=== PATIENT | male | born 1950 | race Caucasian/White ===

== ENCOUNTER 2017-04-16 08:22 | Inpatient (IN) ==
[2017-04-16] MEDS ORDERED: LEVOFLOXACIN INJ 750 MG in PREMIX 1 EACH IV SCH (08:30)
[2017-04-16] MEDS ORDERED: ETOMIDATE 20 MG/10 ML VIAL IV ONE (08:44)
[2017-04-16] MEDS ORDERED: ROCURONIUM 100 MG/10 ML VIAL IV ONE (08:45)
[2017-04-16 08:49] LABS: Basophils % 0.2 % (0.0-0.8); Eosinophils % 0.3 % (0.00-10.9); Hematocrit 25.6 VOL% (42.0-52.0); Hemoglobin 7.6 GM/DL (14.0-18.0); Immature Granulocytes % 3.5 %; Immature Granulocytes Absolute 0.22 #; Lymphocytes # 0.9 10*3/uL (1.4-4.0); Lymphocytes % 14.7 % (21.2-54.2); Mean Corpuscular HGB Conc 29.7 GM/DL (32-36); Mean Corpuscular Hemoglobin 31 PG (27-34); Mean Corpuscular Volume 103.2 FL (87-102); Mean Platelet Volume 10.8 FL (9.6-12.0); Monocytes # 0.9 10*3/uL (0.11-0.8); NRBC # 0.03 10*3/uL; Neutrophils # 4.2 10*3/uL (1.4-7.4); Neutrophils % 66.3 % (38.7-73.9); Platelet Count 131 T/CUMM (130-400); Red Blood Count 2.48 MC/CUMM (3.8-5.5); Red Cell Distribution Width 15.9 % (9.3-17.3); White Blood Count 6.3 T/CUMM (4-12)
[2017-04-16 08:58] LABS: PT Patient Result 10.6 SECS; Partial Thromboplastin Time 27.3 SECS (0-40)
[2017-04-16 09:11] LABS: Alanine Aminotransferase < 6 U/L (16-61); Albumin 2.4 G/DL (3.4-5.0); Alkaline Phosphatase 52 U/L (45-117); Aspartate Amino Transferase 39 U/L (0-37); Blood Urea Nitrogen 60 MG/DL (7-18); Calcium 8.8 MG/DL (8.5-10.1); Glucose 79 MG/DL (74-106); Magnesium 2.1 MG/DL (1.8-2.4); Osmolality,Calculated 318.6 MOS/KG (273-304); Potassium 4.4 MMOL/L (3.5-5.1); Sodium 153 MMOL/L (136-145); Total Protein 6.5 G/DL (6.4-8.3)
[2017-04-16] MEDS ORDERED: ENOXAPARIN 100 MG/ML SYRINGE SUBCUT STA (09:14)
[2017-04-16] MEDS ORDERED: ASPIRIN 300 MG SUPP RECTAL STA (09:14)
[2017-04-16] MEDS ORDERED: methylPREDNISolone SOD SUC 125 MG/2 ML VIAL IV STA (09:16)
[2017-04-16 09:29] LABS: ABG Base Excess -4.6 MMOL/L (-2.5-2.5); ABG Oxygen Saturation 99.1 % (95-100); ABG PCO2 41.2 MM HG (35-48); ABG PH 7.325 (7.35-7.45); ABG TCO2 22.3 MMOL/L (23-27)
[2017-04-16] MEDS ORDERED: ENOXAPARIN 100 MG/ML SYRINGE SUBCUT ONE (09:49)
[2017-04-16] MEDS ORDERED: LEVOFLOXACIN INJ 150 ML IV ONE (09:49)
[2017-04-16] MEDS ORDERED: ASPIRIN 300 MG SUPP RECTAL ONE (09:50)
[2017-04-16] MEDS ORDERED: methylPREDNISolone SOD SUC 125 MG/2 ML VIAL ONE (09:50)
[2017-04-16] MEDS ORDERED: ALBUTEROL/IPRATROPIUM 3 ML NEB RESP TX STA (10:00)
[2017-04-16] MEDS: PROPOFOL 1,000 MG/100 ML BOTTLE IV SCH ×2 (10:00→18:20)
[2017-04-16 10:38] LABS: Apearance,Urine CLOUDY (Clear); Bilirubin,Urine Negative (Negative); Blood, Urine Small mg/dL (Negative); Glucose,Urine (UA) Negative (Negative); Ketones,Urine 5 mg/dL (Negative); Nitrite,Urine Negative (Negative); Protein,Urine 100 MG/DL; Urine Color Yellow (Yellow); Urine Specific Gravity 1.009 (1.001-1.035); Urine Urobilinogen < 2.0 EU/DL (0.2-1.0)
[2017-04-16] MEDS ORDERED: FUROSEMIDE 40 MG/4 ML VIAL IV STA (10:44)
[2017-04-16] MEDS ORDERED: FUROSEMIDE 40 MG/4 ML VIAL ONE (10:53)
[2017-04-16] MEDS ORDERED: PANTOPRAZOLE 40 MG VIAL IV ONE (10:57)
[2017-04-16] MEDS: PANTOPRAZOLE 40 MG VIAL IV SCH (11:00)
[2017-04-16] MEDS ORDERED: DEXTROSE 5% NACL 0.45% 1,000 ML IV SCH (11:30)
[2017-04-16] MEDS ORDERED: SODIUM CHLORIDE 0.9% 1,000 ML IV PRN (11:47)
[2017-04-16] MEDS ORDERED: diphenhydrAMINE 50 MG/1 ML VIAL IV PRN (11:47)
[2017-04-16] MEDS ORDERED: MORPHINE 2 MG/1 ML SYRINGE IV PRN (12:11)
[2017-04-16] MEDS ORDERED: ENOXAPARIN 30 MG/0.3 ML SYRINGE SUBCUT SCH (13:00)
[2017-04-16] MEDS ORDERED: MEROPENEM 500 MG in SYRINGE 1 EACH IV SCH (15:00)
[2017-04-16] MEDS: DEXTROSE 5% 1,000 ML IV SCH (15:35)
[2017-04-16] MEDS ORDERED: ALBUTEROL/IPRATROPIUM 3 ML NEB RESP TX PRN (16:05)
[2017-04-16 16:33] LABS: % Iron Saturation 7.4 % (18-50); Thyroid Stimulating Hormone 17.6 uIU/ml (0.358-3.74)
[2017-04-16 16:43] LABS: Folate 7.5 NG/ML (5.4-24.0)
[2017-04-16] MEDS: ALBUTEROL/IPRATROPIUM 3 ML NEB RESP TX SCH (19:46)
[2017-04-16] MEDS: methylPREDNISolone SOD SUC 125 MG/2 ML VIAL IV SCH (21:17)
[2017-04-17] MEDS: ALBUTEROL/IPRATROPIUM 3 ML NEB RESP TX SCH ×4 (01:22→19:54)
[2017-04-17] MEDS ORDERED: PHENOL 1.4% THROAT SPRAY 177 ML BOTTLE PO PRN (02:13)
[2017-04-17] MEDS: DEXTROSE 5% 1,000 ML IV SCH ×2 (02:18→12:22)
[2017-04-17 03:55] LABS: ABG Base Excess -4.6 MMOL/L (-2.5-2.5); ABG HCO3 20.6 MMOL/L (20-26); ABG Oxygen Saturation 99.7 % (95-100); ABG PCO2 36.9 MM HG (35-48); ABG PH 7.351 (7.35-7.45); ABG TCO2 18.4 MMOL/L (23-27)
[2017-04-17] MEDS: PROPOFOL 1,000 MG/100 ML BOTTLE IV SCH ×2 (05:40→11:41)
[2017-04-17 05:43] LABS: Hematocrit 23.3 VOL% (42.0-52.0); Hemoglobin 7.5 GM/DL (14.0-18.0); Immature Granulocytes % 4.1 %; Immature Granulocytes Absolute 0.15 #; Lymphocytes # 0.4 10*3/uL (1.4-4.0); Lymphocytes % 11.1 % (21.2-54.2); Mean Corpuscular HGB Conc 32.2 GM/DL (32-36); Mean Corpuscular Hemoglobin 31 PG (27-34); Mean Corpuscular Volume 95.1 FL (87-102); Mean Platelet Volume 10.8 FL (9.6-12.0); Monocytes # 0.4 10*3/uL (0.11-0.8); Monocytes % 9.8 % (1.7-12.7); NRBC # 0.02 10*3/uL; Neutrophils # 2.8 10*3/uL (1.4-7.4); Platelet Count 102 T/CUMM (130-400); Red Blood Count 2.45 MC/CUMM (3.8-5.5); Red Cell Distribution Width 16.1 % (9.3-17.3); White Blood Count 3.7 T/CUMM (4-12)
[2017-04-17 06:05] LABS: Giant Platelets Few; Hypochromasia 1+; Lymphocytes 8 % (20-55); Ovalocytes Slight; Platelet Estimate Decreased; Segmented Neutrophils 83 % (50-85); Total Cells Counted 100
[2017-04-17 06:12] LABS: Calcium 8.1 MG/DL (8.5-10.1); Osmolality,Calculated 313.3 MOS/KG (273-304); Potassium 4.3 MMOL/L (3.5-5.1)
[2017-04-17 06:13] LABS: CKMB % 11.3 %
[2017-04-17 06:21] LABS: Troponin I Only 3.23 NG/ML (0.00-0.045)
[2017-04-17 07:19] LABS: Immuno Free Light Chain Kappa 12.64 MG/DL (0.33-1.94); Immuno Free Light Chain Lambda 5.98 MG/DL (0.57-2.63); Immuno Free Light Chain Ratio 2.11 MG/DL (0.26-1.65)
[2017-04-17] MEDS ORDERED: LEVOTHYROXINE 100 MCG VIAL IV SCH (08:55)
[2017-04-17] MEDS: PANTOPRAZOLE 40 MG VIAL IV SCH (09:31)
[2017-04-17 09:44] LABS: Albumin (SPE) 2.6 G/DL (3.2-5.3); Albumin (SPE) Rel % 47.7 %; Alpha 1 (SPE) 0.3 G/DL (0.1-0.4); Alpha 1 (SPE) Rel % 5.3 %; Alpha 2 (SPE) 0.8 G/DL (0.4-1.0); Alpha 2 (SPE) Rel % 14.8 %; Beta (SPE) 0.8 G/DL (0.5-1.1); Beta (SPE) Rel % 14.5 %; Total Protein (Chem) 5.5 G/DL (6.4-8.3)
[2017-04-17 09:45] LABS: Gamma (SPE) Rel % 17.7 %
[2017-04-17] MEDS: ENOXAPARIN 30 MG/0.3 ML SYRINGE SUBCUT SCH (09:45)
[2017-04-17] MEDS: methylPREDNISolone SOD SUC 125 MG/2 ML VIAL IV SCH (09:53)
[2017-04-17 09:57] LABS: ABG Base Excess -5.4 MMOL/L (-2.5-2.5); ABG HCO3 20.9 MMOL/L (20-26); ABG Oxygen Saturation 98.4 % (95-100); ABG PCO2 44.1 MM HG (35-48); ABG PH 7.293 (7.35-7.45); ABG PO2 157.4 MM HG (80-95); ABG TCO2 22.2 MMOL/L (23-27)
[2017-04-17] MEDS ORDERED: ACETAMINOPHEN 325 MG TABLET PO PRN (10:36)
[2017-04-17] MEDS ORDERED: BISACODYL 5 MG TABLET PO PRN (10:36)
[2017-04-17 12:00] LABS: ABG Base Excess -5.2 MMOL/L (-2.5-2.5); ABG HCO3 21.4 MMOL/L (20-26); ABG Oxygen Saturation 94.5 % (95-100); ABG PCO2 47.6 MM HG (35-48); ABG PH 7.271 (7.35-7.45); ABG TCO2 22.9 MMOL/L (23-27); Allen Test Positive
[2017-04-17] MEDS ORDERED: hydrALAZINE 20 MG/1 ML VIAL IV PRN (12:32)
[2017-04-17] MEDS: ZINC OXIDE PASTE 113 GM TUBE TOP SCH ×2 (12:44→21:41)
[2017-04-17] MEDS: amLODIPine 10 MG TABLET PO SCH (13:11)
[2017-04-17] MEDS: CARVEDILOL 3.125 MG TABLET PO SCH ×2 (13:11→21:41)
[2017-04-17] MEDS ORDERED: AZITHROMYCIN 250 MG TABLET PO ONE (14:00)
[2017-04-17] MEDS: cefTRIAXone 1,000 MG in SYRINGE 1 EACH IV SCH (14:01)
[2017-04-17] MEDS: CARBIDOPA/LEVODOPA 25-100 MG TABLET PO SCH ×2 (15:43→21:39)
[2017-04-17] MEDS: DIVALPROEX 500 MG TABLET PO SCH ×2 (15:43→21:40)
[2017-04-17] MEDS: SODIUM CHLORIDE 0.45% 1,000 ML IV SCH (17:58)
[2017-04-17] MEDS ORDERED: CARVEDILOL 3.125 MG TABLET PO SCH (21:00)
[2017-04-17] MEDS: GABAPENTIN 100 MG CAPSULE PO SCH (21:40)
[2017-04-17] MEDS: FERROUS SULFATE 325 MG TABLET PO SCH (21:40)
[2017-04-17] MEDS: THEOPHYLLINE ER 300 MG TABLET PO SCH (21:40)
[2017-04-17] MEDS: BUDESONIDE/FORMOTEROL 160-4.5 INHALER 6 GM INH SCH (21:55)
[2017-04-18] MEDS: ALBUTEROL/IPRATROPIUM 3 ML NEB RESP TX SCH ×4 (01:11→19:29)
[2017-04-18 05:13] LABS: ABG Base Excess -4.6 MMOL/L (-2.5-2.5); ABG HCO3 20.5 MMOL/L (20-26); ABG Oxygen Saturation 94.4 % (95-100); ABG PCO2 44.6 MM HG (35-48); ABG PH 7.298 (7.35-7.45); ABG PO2 71.5 MM HG (80-95); ABG TCO2 19.9 MMOL/L (23-27); Allen Test Positive
[2017-04-18 05:18] LABS: Basophils % 0.2 % (0.0-0.8); Eosinophils % 0.4 % (0.00-10.9); Hematocrit 27.1 VOL% (42.0-52.0); Hemoglobin 8.5 GM/DL (14.0-18.0); Immature Granulocytes Absolute 0.23 #; Lymphocytes # 1.2 10*3/uL (1.4-4.0); Lymphocytes % 26.4 % (21.2-54.2); Mean Corpuscular HGB Conc 31.4 GM/DL (32-36); Mean Corpuscular Hemoglobin 30 PG (27-34); Mean Corpuscular Volume 96.8 FL (87-102); Mean Platelet Volume 11.2 FL (9.6-12.0); Monocytes # 0.6 10*3/uL (0.11-0.8); Monocytes % 12.6 % (1.7-12.7); NRBC # 0.02 10*3/uL; Neutrophils # 2.5 10*3/uL (1.4-7.4); Neutrophils % 55.4 % (38.7-73.9); Platelet Count 120 T/CUMM (130-400); Red Cell Distribution Width 15.9 % (9.3-17.3); White Blood Count 4.6 T/CUMM (4-12)
[2017-04-18 05:53] LABS: Calcium 7.7 MG/DL (8.5-10.1); Magnesium 2.1 MG/DL (1.8-2.4); Osmolality,Calculated 305.7 MOS/KG (273-304); Potassium 4.6 MMOL/L (3.5-5.1)
[2017-04-18] MEDS: SODIUM CHLORIDE 0.45% 1,000 ML IV SCH ×2 (07:00→14:32)
[2017-04-18 07:03] LABS: CKMB % 14.1 %
[2017-04-18 07:04] LABS: Troponin I Only 1.83 NG/ML (0.00-0.045)
[2017-04-18] MEDS: LEVOTHYROXINE 100 MCG TABLET PO SCH (07:13)
[2017-04-18] MEDS ORDERED: LEVOTHYROXINE 50 MCG TABLET PO SCH (09:00)
[2017-04-18] MEDS ORDERED: predniSONE 10 MG TABLET PO SCH (09:00)
[2017-04-18] MEDS ORDERED: amLODIPine 10 MG TABLET PO SCH (09:00)
[2017-04-18] MEDS: POTASSIUM CHLORIDE 20 MEQ PACK PO SCH (09:39)
[2017-04-18] MEDS: FENOFIBRATE 145 MG TABLET PO SCH (10:12)
[2017-04-18] MEDS: AZITHROMYCIN 250 MG TABLET PO SCH (10:12)
[2017-04-18] MEDS: CARBIDOPA/LEVODOPA 25-100 MG TABLET PO SCH ×3 (10:13→20:16)
[2017-04-18] MEDS: FAMOTIDINE 20 MG TABLET PO SCH (10:13)
[2017-04-18] MEDS: FERROUS SULFATE 325 MG TABLET PO SCH ×2 (10:13→20:16)
[2017-04-18] MEDS: MONTELUKAST 10 MG TABLET PO SCH (10:13)
[2017-04-18] MEDS: DIVALPROEX 500 MG TABLET PO SCH ×3 (10:13→20:15)
[2017-04-18] MEDS: amLODIPine 10 MG TABLET PO SCH (10:14)
[2017-04-18] MEDS: ROSUVASTATIN 20 MG TABLET PO SCH (10:14)
[2017-04-18] MEDS: THEOPHYLLINE ER 300 MG TABLET PO SCH ×2 (10:15→20:15)
[2017-04-18] MEDS: MULTIVITAMIN (CENTRUM) TABLET PO SCH (10:15)
[2017-04-18] MEDS: CARVEDILOL 3.125 MG TABLET PO SCH ×2 (10:15→20:16)
[2017-04-18] MEDS: GABAPENTIN 100 MG CAPSULE PO SCH ×2 (10:15→20:16)
[2017-04-18] MEDS: ASPIRIN CHEW 81 MG TABLET PO SCH (10:15)
[2017-04-18] MEDS: MUPIROCIN 2% OINT 22 GM TUBE TOP SCH ×2 (10:16→20:17)
[2017-04-18] MEDS: PANTOPRAZOLE 40 MG VIAL IV SCH (10:16)
[2017-04-18] MEDS: ENOXAPARIN 30 MG/0.3 ML SYRINGE SUBCUT SCH (10:16)
[2017-04-18] MEDS: BUDESONIDE/FORMOTEROL 160-4.5 INHALER 6 GM INH SCH ×2 (10:16→20:18)
[2017-04-18] MEDS: ZINC OXIDE PASTE 113 GM TUBE TOP SCH ×2 (10:17→20:17)
[2017-04-18] MEDS: cefTRIAXone 1,000 MG in SYRINGE 1 EACH IV SCH (14:21)
[2017-04-18] MEDS: FLUoxetine 10 MG CAPSULE PO SCH (14:22)
[2017-04-19] MEDS: SODIUM CHLORIDE 0.45% 1,000 ML IV SCH ×2 (00:13→11:06)
[2017-04-19] MEDS: ALBUTEROL/IPRATROPIUM 3 ML NEB RESP TX SCH ×4 (01:10→19:45)
[2017-04-19 04:22] LABS: Basophils % 0.7 % (0.0-0.8); Eosinophils # 0.1 10*3/uL (0.0-0.87); Eosinophils % 1.4 % (0.00-10.9); Hematocrit 26.8 VOL% (42.0-52.0); Hemoglobin 8.7 GM/DL (14.0-18.0); Immature Granulocytes % 9.4 %; Immature Granulocytes Absolute 0.41 #; Lymphocytes # 1.3 10*3/uL (1.4-4.0); Lymphocytes % 29.2 % (21.2-54.2); Mean Corpuscular HGB Conc 32.5 GM/DL (32-36); Mean Corpuscular Hemoglobin 31 PG (27-34); Mean Corpuscular Volume 95.4 FL (87-102); Mean Platelet Volume 10.3 FL (9.6-12.0); Monocytes # 0.6 10*3/uL (0.11-0.8); Monocytes % 12.9 % (1.7-12.7); Neutrophils % 46.4 % (38.7-73.9); Platelet Count 113 T/CUMM (130-400); Red Blood Count 2.81 MC/CUMM (3.8-5.5); Red Cell Distribution Width 15.7 % (9.3-17.3); White Blood Count 4.4 T/CUMM (4-12)
[2017-04-19 04:55] LABS: Calcium 7.6 MG/DL (8.5-10.1); Potassium 4.5 MMOL/L (3.5-5.1)
[2017-04-19 06:04] LABS: Band Neutrophils 5 % (0-10); Eosinophils 3 % (0-10); Lymphocytes 30 % (20-55); Metamyelocytes 3 %; Myelocytes 6 %; Segmented Neutrophils 50 % (50-85); Total Cells Counted 100
[2017-04-19 06:05] LABS: Anisocytosis 1+; Hypochromasia 1+
[2017-04-19 06:06] LABS: Platelet Estimate Adequate
[2017-04-19] MEDS: LEVOTHYROXINE 100 MCG TABLET PO SCH (06:28)
[2017-04-19] MEDS: ENOXAPARIN 30 MG/0.3 ML SYRINGE SUBCUT SCH (09:36)
[2017-04-19] MEDS: PANTOPRAZOLE 40 MG VIAL IV SCH (09:36)
[2017-04-19] MEDS: ROSUVASTATIN 20 MG TABLET PO SCH (09:37)
[2017-04-19] MEDS: FAMOTIDINE 20 MG TABLET PO SCH (09:37)
[2017-04-19] MEDS: FLUoxetine 10 MG CAPSULE PO SCH (09:38)
[2017-04-19] MEDS: DIVALPROEX 500 MG TABLET PO SCH ×3 (09:38→21:37)
[2017-04-19] MEDS: CARBIDOPA/LEVODOPA 25-100 MG TABLET PO SCH ×3 (09:38→21:37)
[2017-04-19] MEDS: FERROUS SULFATE 325 MG TABLET PO SCH ×2 (09:38→21:37)
[2017-04-19] MEDS: THEOPHYLLINE ER 300 MG TABLET PO SCH ×2 (09:39→21:37)
[2017-04-19] MEDS: ASPIRIN CHEW 81 MG TABLET PO SCH (09:39)
[2017-04-19] MEDS: MONTELUKAST 10 MG TABLET PO SCH (09:39)
[2017-04-19] MEDS: AZITHROMYCIN 250 MG TABLET PO SCH (09:39)
[2017-04-19] MEDS: GABAPENTIN 100 MG CAPSULE PO SCH ×2 (09:40→21:37)
[2017-04-19] MEDS: amLODIPine 10 MG TABLET PO SCH (09:40)
[2017-04-19] MEDS: MULTIVITAMIN (CENTRUM) TABLET PO SCH (09:40)
[2017-04-19] MEDS: CARVEDILOL 3.125 MG TABLET PO SCH ×2 (09:41→21:37)
[2017-04-19] MEDS: FENOFIBRATE 145 MG TABLET PO SCH (09:42)
[2017-04-19] MEDS: POTASSIUM CHLORIDE 20 MEQ PACK PO SCH (09:43)
[2017-04-19] MEDS: ZINC OXIDE PASTE 113 GM TUBE TOP SCH ×2 (09:44→21:37)
[2017-04-19] MEDS: MUPIROCIN 2% OINT 22 GM TUBE TOP SCH ×2 (09:44→21:37)
[2017-04-19] MEDS: BUDESONIDE/FORMOTEROL 160-4.5 INHALER 6 GM INH SCH ×2 (09:44→21:39)
[2017-04-19] MEDS: cefTRIAXone 1,000 MG in SYRINGE 1 EACH IV SCH (13:19)
[2017-04-20] MEDS: ALBUTEROL/IPRATROPIUM 3 ML NEB RESP TX SCH ×4 (00:30→19:24)
[2017-04-20 05:28] LABS: Basophils % 0.8 % (0.0-0.8); Eosinophils # 0.1 10*3/uL (0.0-0.87); Eosinophils % 1.5 % (0.00-10.9); Hematocrit 26.4 VOL% (42.0-52.0); Hemoglobin 8.2 GM/DL (14.0-18.0); Immature Granulocytes % 9.5 %; Lymphocytes # 1.4 10*3/uL (1.4-4.0); Lymphocytes % 25.9 % (21.2-54.2); Mean Corpuscular HGB Conc 31.1 GM/DL (32-36); Mean Corpuscular Hemoglobin 30 PG (27-34); Mean Corpuscular Volume 97.4 FL (87-102); Mean Platelet Volume 10.9 FL (9.6-12.0); Monocytes # 0.8 10*3/uL (0.11-0.8); Monocytes % 14.2 % (1.7-12.7); Neutrophils # 2.6 10*3/uL (1.4-7.4); Neutrophils % 48.1 % (38.7-73.9); Platelet Count 120 T/CUMM (130-400); Red Blood Count 2.71 MC/CUMM (3.8-5.5); Red Cell Distribution Width 15.4 % (9.3-17.3); White Blood Count 5.3 T/CUMM (4-12)
[2017-04-20 06:06] LABS: Calcium 7.8 MG/DL (8.5-10.1); Magnesium 2.1 MG/DL (1.8-2.4); Osmolality,Calculated 311.3 MOS/KG (273-304); Potassium 4.8 MMOL/L (3.5-5.1)
[2017-04-20 06:21] LABS: Random Urine Protein (Bench) 150 MG/DL (<11.9)
[2017-04-20 06:40] LABS: Anisocytosis Slight; Band Neutrophils 2 % (0-10); Lymphocytes 39 % (20-55); Macrocytosis 1+; Nucleated Red Blood Cells 1 (0-5); Platelet Estimate Decreased; Segmented Neutrophils 54 % (50-85); Total Cells Counted 100
[2017-04-20] MEDS: LEVOTHYROXINE 100 MCG TABLET PO SCH (07:34)
[2017-04-20] MEDS ORDERED: INFLUENZA VIRUS VACCINE 0.5 ML SYRINGE IM ONE (09:00)
[2017-04-20] MEDS: PANTOPRAZOLE 40 MG VIAL IV SCH (09:30)
[2017-04-20] MEDS: amLODIPine 10 MG TABLET PO SCH (09:31)
[2017-04-20] MEDS: DIVALPROEX 500 MG TABLET PO SCH ×3 (09:31→20:58)
[2017-04-20] MEDS: MONTELUKAST 10 MG TABLET PO SCH (09:31)
[2017-04-20] MEDS: ASPIRIN CHEW 81 MG TABLET PO SCH (09:31)
[2017-04-20] MEDS: CARVEDILOL 3.125 MG TABLET PO SCH ×2 (09:31→21:01)
[2017-04-20] MEDS: ROSUVASTATIN 20 MG TABLET PO SCH (09:31)
[2017-04-20] MEDS: MULTIVITAMIN (CENTRUM) TABLET PO SCH (09:31)
[2017-04-20] MEDS: FLUoxetine 10 MG CAPSULE PO SCH (09:32)
[2017-04-20] MEDS: ENOXAPARIN 30 MG/0.3 ML SYRINGE SUBCUT SCH (09:32)
[2017-04-20] MEDS: THEOPHYLLINE ER 300 MG TABLET PO SCH ×2 (09:32→20:58)
[2017-04-20] MEDS: FAMOTIDINE 20 MG TABLET PO SCH (09:32)
[2017-04-20] MEDS: FENOFIBRATE 145 MG TABLET PO SCH (09:32)
[2017-04-20] MEDS: AZITHROMYCIN 250 MG TABLET PO SCH (09:32)
[2017-04-20] MEDS: GABAPENTIN 100 MG CAPSULE PO SCH ×2 (09:32→20:58)
[2017-04-20] MEDS: CARBIDOPA/LEVODOPA 25-100 MG TABLET PO SCH ×3 (09:32→20:58)
[2017-04-20] MEDS: FERROUS SULFATE 325 MG TABLET PO SCH ×2 (09:32→20:58)
[2017-04-20] MEDS: MUPIROCIN 2% OINT 22 GM TUBE TOP SCH ×2 (09:33→21:01)
[2017-04-20] MEDS: BUDESONIDE/FORMOTEROL 160-4.5 INHALER 6 GM INH SCH ×2 (09:33→21:01)
[2017-04-20] MEDS: ZINC OXIDE PASTE 113 GM TUBE TOP SCH ×2 (09:33→21:02)
[2017-04-20] MEDS: cefTRIAXone 1,000 MG in SYRINGE 1 EACH IV SCH (13:52)
[2017-04-21] MEDS: ALBUTEROL/IPRATROPIUM 3 ML NEB RESP TX SCH ×4 (01:59→18:55)
[2017-04-21] MEDS: LEVOTHYROXINE 100 MCG TABLET PO SCH (06:11)
[2017-04-21 07:05] LABS: Basophils % 0.7 % (0.0-0.8); Eosinophils # 0.1 10*3/uL (0.0-0.87); Hematocrit 27.5 VOL% (42.0-52.0); Hemoglobin 8.4 GM/DL (14.0-18.0); Immature Granulocytes % 11.6 %; Immature Granulocytes Absolute 0.65 #; Lymphocytes # 1.3 10*3/uL (1.4-4.0); Lymphocytes % 23.7 % (21.2-54.2); Mean Corpuscular HGB Conc 30.5 GM/DL (32-36); Mean Corpuscular Hemoglobin 30 PG (27-34); Mean Corpuscular Volume 97.5 FL (87-102); Monocytes # 0.7 10*3/uL (0.11-0.8); NRBC # 0.02 10*3/uL; Neutrophils # 2.8 10*3/uL (1.4-7.4); Platelet Count 121 T/CUMM (130-400); Red Blood Count 2.82 MC/CUMM (3.8-5.5); Red Cell Distribution Width 15.4 % (9.3-17.3); White Blood Count 5.6 T/CUMM (4-12)
[2017-04-21 07:18] LABS: Albumin (UPER) 87.2 MG/DL; Albumin (UPER) Rel% 58.1 %; Alpha 1 (UPER) 18.9 MG/DL; Alpha 1 (UPER) Rel% 12.6 %; Alpha 2 (UPER) 11.8 MG/DL; Alpha 2 (UPER) Rel % 7.9 %; Beta (UPER) 21.1 MG/DL; Beta (UPER) Rel % 14.1 %; Gamma (UPER) Rel % 7.3 %
[2017-04-21 07:30] LABS: Macrocytosis 1+
[2017-04-21 07:39] LABS: Calcium 8.5 MG/DL (8.5-10.1); Magnesium 2.1 MG/DL (1.8-2.4); Osmolality,Calculated 318.9 MOS/KG (273-304); Potassium 4.4 MMOL/L (3.5-5.1)
[2017-04-21] MEDS: ROSUVASTATIN 20 MG TABLET PO SCH (10:00)
[2017-04-21] MEDS: amLODIPine 10 MG TABLET PO SCH (10:00)
[2017-04-21] MEDS: ENOXAPARIN 30 MG/0.3 ML SYRINGE SUBCUT SCH (10:00)
[2017-04-21] MEDS: CARBIDOPA/LEVODOPA 25-100 MG TABLET PO SCH ×3 (10:00→21:21)
[2017-04-21] MEDS: AZITHROMYCIN 250 MG TABLET PO SCH (10:00)
[2017-04-21] MEDS: FAMOTIDINE 20 MG TABLET PO SCH (10:01)
[2017-04-21] MEDS: MONTELUKAST 10 MG TABLET PO SCH (10:01)
[2017-04-21] MEDS: FERROUS SULFATE 325 MG TABLET PO SCH ×2 (10:01→21:21)
[2017-04-21] MEDS: MULTIVITAMIN (CENTRUM) TABLET PO SCH (10:01)
[2017-04-21] MEDS: FENOFIBRATE 145 MG TABLET PO SCH (10:01)
[2017-04-21] MEDS: THEOPHYLLINE ER 300 MG TABLET PO SCH ×2 (10:01→21:21)
[2017-04-21] MEDS: ASPIRIN CHEW 81 MG TABLET PO SCH (10:01)
[2017-04-21] MEDS: BUDESONIDE/FORMOTEROL 160-4.5 INHALER 6 GM INH SCH ×2 (10:02→21:22)
[2017-04-21] MEDS: cefTRIAXone 1,000 MG in SYRINGE 1 EACH IV SCH (10:02)
[2017-04-21] MEDS: MUPIROCIN 2% OINT 22 GM TUBE TOP SCH ×2 (10:02→21:22)
[2017-04-21] MEDS: ZINC OXIDE PASTE 113 GM TUBE TOP SCH ×2 (10:02→21:22)
[2017-04-21] MEDS: PANTOPRAZOLE 40 MG VIAL IV SCH (10:02)
[2017-04-21] MEDS: FLUoxetine 10 MG CAPSULE PO SCH (10:03)
[2017-04-21] MEDS: DIVALPROEX 500 MG TABLET PO SCH ×3 (10:03→21:22)
[2017-04-21] MEDS: GABAPENTIN 100 MG CAPSULE PO SCH ×2 (10:03→21:22)
[2017-04-21] MEDS: CARVEDILOL 3.125 MG TABLET PO SCH ×2 (10:04→21:21)
[2017-04-21] MEDS: ALBUTEROL 2 MG TABLET PO SCH ×2 (14:25→21:21)
[2017-04-21] MEDS: LINEZOLID INJ 600 MG in PREMIX 1 EACH IV SCH (14:26)
[2017-04-21] MEDS: methylPREDNISolone SOD SUC 40 MG/1 ML VIAL IV SCH ×2 (14:26→21:22)
[2017-04-21] MEDS: SODIUM CHLORIDE 23.4% CONC INJ 38.5 MEQ in STERILE WATER INJ 1,000 ML IV SCH ×2 (15:15→23:30)
[2017-04-22] MEDS: ALBUTEROL/IPRATROPIUM 3 ML NEB RESP TX SCH ×4 (00:02→20:38)
[2017-04-22 03:29] LABS: ABG Base Excess -4.4 MMOL/L (-2.5-2.5); ABG HCO3 20.7 MMOL/L (20-26); ABG Oxygen Saturation 98.2 % (95-100); ABG PCO2 41.7 MM HG (35-48); ABG PH 7.318 (7.35-7.45); ABG PO2 93.4 MM HG (80-95); ABG TCO2 20.1 MMOL/L (23-27); Allen Test Positive; Pt O2 Delivery Device Other
[2017-04-22] MEDS: LINEZOLID INJ 600 MG in PREMIX 1 EACH IV SCH ×2 (05:43→21:48)
[2017-04-22] MEDS: ALBUTEROL 2 MG TABLET PO SCH ×2 (05:43→15:31)
[2017-04-22] MEDS: LEVOTHYROXINE 100 MCG TABLET PO SCH (05:43)
[2017-04-22] MEDS: methylPREDNISolone SOD SUC 40 MG/1 ML VIAL IV SCH ×3 (05:43→21:18)
[2017-04-22] MEDS: SODIUM CHLORIDE 23.4% CONC INJ 38.5 MEQ in STERILE WATER INJ 1,000 ML IV SCH ×2 (09:25→17:26)
[2017-04-22] MEDS: ROSUVASTATIN 20 MG TABLET PO SCH (09:26)
[2017-04-22] MEDS: THEOPHYLLINE ER 300 MG TABLET PO SCH ×2 (09:27→21:47)
[2017-04-22] MEDS: MONTELUKAST 10 MG TABLET PO SCH (09:27)
[2017-04-22] MEDS: FENOFIBRATE 145 MG TABLET PO SCH (09:27)
[2017-04-22] MEDS: FERROUS SULFATE 325 MG TABLET PO SCH ×2 (09:27→21:47)
[2017-04-22] MEDS: amLODIPine 10 MG TABLET PO SCH (09:27)
[2017-04-22] MEDS: FAMOTIDINE 20 MG TABLET PO SCH (09:27)
[2017-04-22] MEDS: CARBIDOPA/LEVODOPA 25-100 MG TABLET PO SCH ×3 (09:27→21:47)
[2017-04-22] MEDS: FLUoxetine 10 MG CAPSULE PO SCH (09:27)
[2017-04-22] MEDS: MULTIVITAMIN (CENTRUM) TABLET PO SCH (09:27)
[2017-04-22] MEDS: GABAPENTIN 100 MG CAPSULE PO SCH ×2 (09:29→21:48)
[2017-04-22] MEDS: DIVALPROEX 500 MG TABLET PO SCH ×3 (09:29→21:47)
[2017-04-22] MEDS: ASPIRIN CHEW 81 MG TABLET PO SCH (09:29)
[2017-04-22] MEDS: ENOXAPARIN 30 MG/0.3 ML SYRINGE SUBCUT SCH (09:29)
[2017-04-22] MEDS: MUPIROCIN 2% OINT 22 GM TUBE TOP SCH ×2 (09:29→21:49)
[2017-04-22] MEDS: ZINC OXIDE PASTE 113 GM TUBE TOP SCH ×2 (09:29→21:48)
[2017-04-22] MEDS: CARVEDILOL 3.125 MG TABLET PO SCH ×2 (09:29→21:47)
[2017-04-22] MEDS: BUDESONIDE/FORMOTEROL 160-4.5 INHALER 6 GM INH SCH ×2 (09:30→21:48)
[2017-04-22] MEDS: PANTOPRAZOLE 40 MG VIAL IV SCH (09:32)
[2017-04-22] MEDS: cefTRIAXone 1,000 MG in SYRINGE 1 EACH IV SCH (09:35)
[2017-04-22 09:39] LABS: Basophils # 0.1 10*3/uL (0.0-0.2); Basophils % 0.8 % (0.0-0.8); Eosinophils % 0.2 % (0.00-10.9); Hematocrit 28.9 VOL% (42.0-52.0); Hemoglobin 8.8 GM/DL (14.0-18.0); Immature Granulocytes % 13.9 %; Immature Granulocytes Absolute 0.87 #; Lymphocytes # 0.6 10*3/uL (1.4-4.0); Lymphocytes % 9.9 % (21.2-54.2); Mean Corpuscular HGB Conc 30.4 GM/DL (32-36); Mean Corpuscular Hemoglobin 30 PG (27-34); Mean Platelet Volume 10.9 FL (9.6-12.0); Monocytes # 0.3 10*3/uL (0.11-0.8); Neutrophils # 4.4 10*3/uL (1.4-7.4); Neutrophils % 71.2 % (38.7-73.9); Platelet Count 121 T/CUMM (130-400); Red Blood Count 2.95 MC/CUMM (3.8-5.5); Red Cell Distribution Width 15.3 % (9.3-17.3); White Blood Count 6.2 T/CUMM (4-12)
[2017-04-22 10:08] LABS: Band Neutrophils 1 % (0-10); Hypochromasia 1+; Lymphocytes 11 % (20-55); Metamyelocytes 3 %; Microcytosis Slight; Myelocytes 2 %; Promyelocytes 1 %; Segmented Neutrophils 81 % (50-85); Total Cells Counted 100
[2017-04-22 10:09] LABS: Platelet Estimate Adequate
[2017-04-22 10:13] LABS: Calcium 8.4 MG/DL (8.5-10.1); Osmolality,Calculated 305.8 MOS/KG (273-304); Potassium 4.6 MMOL/L (3.5-5.1)
[2017-04-23] MEDS: ALBUTEROL/IPRATROPIUM 3 ML NEB RESP TX SCH ×4 (00:04→19:54)
[2017-04-23] MEDS: ALBUTEROL 2 MG TABLET PO SCH ×3 (01:50→14:33)
[2017-04-23] MEDS: methylPREDNISolone SOD SUC 40 MG/1 ML VIAL IV SCH ×2 (04:58→12:54)
[2017-04-23 05:55] LABS: Basophils % 0.5 % (0.0-0.8); Eosinophils % 0.2 % (0.00-10.9); Hematocrit 25.9 VOL% (42.0-52.0); Hemoglobin 8.3 GM/DL (14.0-18.0); Immature Granulocytes % 15.3 %; Immature Granulocytes Absolute 0.89 #; Lymphocytes # 0.7 10*3/uL (1.4-4.0); Lymphocytes % 12.7 % (21.2-54.2); Mean Corpuscular Hemoglobin 30 PG (27-34); Mean Corpuscular Volume 94.2 FL (87-102); Mean Platelet Volume 11.8 FL (9.6-12.0); Monocytes # 0.4 10*3/uL (0.11-0.8); Monocytes % 6.7 % (1.7-12.7); NRBC # 0.02 10*3/uL; Neutrophils # 3.8 10*3/uL (1.4-7.4); Neutrophils % 64.6 % (38.7-73.9); Platelet Count 133 T/CUMM (130-400); Red Blood Count 2.75 MC/CUMM (3.8-5.5); Red Cell Distribution Width 15.5 % (9.3-17.3); White Blood Count 5.8 T/CUMM (4-12)
[2017-04-23] MEDS: LEVOTHYROXINE 100 MCG TABLET PO SCH (06:03)
[2017-04-23 06:20] LABS: Band Neutrophils 5 % (0-10); Lymphocytes 7 % (20-55); Segmented Neutrophils 75 % (50-85); Total Cells Counted 100
[2017-04-23 06:21] LABS: Hypochromasia 1+; Platelet Estimate Decreased
[2017-04-23 06:31] LABS: Alanine Aminotransferase < 6 U/L (16-61); Albumin 2.2 G/DL (3.4-5.0); Alkaline Phosphatase 48 U/L (45-117); Aspartate Amino Transferase 24 U/L (0-37); Blood Urea Nitrogen 67 MG/DL (7-18); Calcium 8.9 MG/DL (8.5-10.1); Glucose 93 MG/DL (74-106); Magnesium 2.2 MG/DL (1.8-2.4); Osmolality,Calculated 306.7 MOS/KG (273-304); Potassium 5.4 MMOL/L (3.5-5.1); Sodium 145 MMOL/L (136-145); Total Protein 5.6 G/DL (6.4-8.3)
[2017-04-23] MEDS: THEOPHYLLINE ER 300 MG TABLET PO SCH ×2 (09:11→21:27)
[2017-04-23] MEDS: amLODIPine 10 MG TABLET PO SCH (09:11)
[2017-04-23] MEDS: FLUoxetine 10 MG CAPSULE PO SCH (09:11)
[2017-04-23] MEDS: ASPIRIN CHEW 81 MG TABLET PO SCH (09:11)
[2017-04-23] MEDS: MONTELUKAST 10 MG TABLET PO SCH (09:11)
[2017-04-23] MEDS: DIVALPROEX 500 MG TABLET PO SCH ×3 (09:11→21:27)
[2017-04-23] MEDS: FAMOTIDINE 20 MG TABLET PO SCH (09:11)
[2017-04-23] MEDS: MULTIVITAMIN (CENTRUM) TABLET PO SCH (09:11)
[2017-04-23] MEDS: ROSUVASTATIN 20 MG TABLET PO SCH (09:11)
[2017-04-23] MEDS: FENOFIBRATE 145 MG TABLET PO SCH (09:11)
[2017-04-23] MEDS: CARVEDILOL 3.125 MG TABLET PO SCH ×2 (09:12→21:27)
[2017-04-23] MEDS: ENOXAPARIN 30 MG/0.3 ML SYRINGE SUBCUT SCH (09:12)
[2017-04-23] MEDS: GABAPENTIN 100 MG CAPSULE PO SCH ×2 (09:12→21:27)
[2017-04-23] MEDS: ZINC OXIDE PASTE 113 GM TUBE TOP SCH ×2 (09:12→21:27)
[2017-04-23] MEDS: MUPIROCIN 2% OINT 22 GM TUBE TOP SCH ×2 (09:12→21:27)
[2017-04-23] MEDS: FERROUS SULFATE 325 MG TABLET PO SCH ×2 (09:12→21:27)
[2017-04-23] MEDS: CARBIDOPA/LEVODOPA 25-100 MG TABLET PO SCH ×3 (09:12→21:27)
[2017-04-23] MEDS: PANTOPRAZOLE 40 MG VIAL IV SCH (09:13)
[2017-04-23] MEDS: cefTRIAXone 1,000 MG in SYRINGE 1 EACH IV SCH (09:15)
[2017-04-23] MEDS: BUDESONIDE/FORMOTEROL 160-4.5 INHALER 6 GM INH SCH ×2 (09:24→21:27)
[2017-04-23] MEDS: LINEZOLID INJ 600 MG in PREMIX 1 EACH IV SCH ×2 (09:24→21:30)
[2017-04-24] MEDS: ALBUTEROL 2 MG TABLET PO SCH ×3 (00:02→14:03)
[2017-04-24] MEDS: methylPREDNISolone SOD SUC 40 MG/1 ML VIAL IV SCH ×4 (00:12→22:36)
[2017-04-24] MEDS: ALBUTEROL/IPRATROPIUM 3 ML NEB RESP TX SCH ×4 (00:39→20:10)
[2017-04-24] MEDS: LEVOTHYROXINE 100 MCG TABLET PO SCH (06:13)
[2017-04-24 07:06] LABS: Basophils % 0.2 % (0.0-0.8); Hematocrit 24.1 VOL% (42.0-52.0); Hemoglobin 7.4 GM/DL (14.0-18.0); Immature Granulocytes % 14.1 %; Immature Granulocytes Absolute 0.72 #; Lymphocytes # 0.5 10*3/uL (1.4-4.0); Lymphocytes % 9.2 % (21.2-54.2); Mean Corpuscular HGB Conc 30.7 GM/DL (32-36); Mean Corpuscular Hemoglobin 30 PG (27-34); Mean Corpuscular Volume 96.8 FL (87-102); Monocytes # 0.2 10*3/uL (0.11-0.8); Monocytes % 4.5 % (1.7-12.7); Neutrophils # 3.7 10*3/uL (1.4-7.4); Platelet Count 135 T/CUMM (130-400); Red Blood Count 2.49 MC/CUMM (3.8-5.5); Red Cell Distribution Width 15.5 % (9.3-17.3); White Blood Count 5.1 T/CUMM (4-12)
[2017-04-24 07:30] LABS: Band Neutrophils 5 % (0-10); Hypochromasia 1+; Lymphocytes 9 % (20-55); Platelet Estimate Normal; Segmented Neutrophils 81 % (50-85); Total Cells Counted 100
[2017-04-24 07:31] LABS: Giant Platelets Few; Microcytosis Slight; Ovalocytes Slight
[2017-04-24 07:55] LABS: Alanine Aminotransferase < 6 U/L (16-61); Albumin 2.2 G/DL (3.4-5.0); Alkaline Phosphatase 44 U/L (45-117); Aspartate Amino Transferase 13 U/L (0-37); Bilirubin,Total < 0.39 MG/DL (0.2-1.0); Blood Urea Nitrogen 81 MG/DL (7-18); Calcium 8.5 MG/DL (8.5-10.1); Glucose 106 MG/DL (74-106); Magnesium 2.1 MG/DL (1.8-2.4); Osmolality,Calculated 313.6 MOS/KG (273-304); Potassium 5.1 MMOL/L (3.5-5.1); Sodium 146 MMOL/L (136-145); Total Protein 5.3 G/DL (6.4-8.3)
[2017-04-24] MEDS ORDERED: SODIUM CHLORIDE 0.9% 1,000 ML IV PRN (08:24)
[2017-04-24] MEDS: MULTIVITAMIN (CENTRUM) TABLET PO SCH (09:46)
[2017-04-24] MEDS: ASPIRIN CHEW 81 MG TABLET PO SCH (09:46)
[2017-04-24] MEDS: ROSUVASTATIN 20 MG TABLET PO SCH (09:47)
[2017-04-24] MEDS: CARVEDILOL 3.125 MG TABLET PO SCH ×2 (09:47→22:35)
[2017-04-24] MEDS: DIVALPROEX 500 MG TABLET PO SCH ×3 (09:48→22:35)
[2017-04-24] MEDS: ZINC OXIDE PASTE 113 GM TUBE TOP SCH ×2 (09:49→22:37)
[2017-04-24] MEDS: MUPIROCIN 2% OINT 22 GM TUBE TOP SCH ×2 (09:49→22:37)
[2017-04-24] MEDS: FERROUS SULFATE 325 MG TABLET PO SCH ×2 (09:49→22:35)
[2017-04-24] MEDS: GABAPENTIN 100 MG CAPSULE PO SCH ×2 (09:50→22:35)
[2017-04-24] MEDS: amLODIPine 10 MG TABLET PO SCH (09:50)
[2017-04-24] MEDS: BUDESONIDE/FORMOTEROL 160-4.5 INHALER 6 GM INH SCH ×2 (09:51→22:37)
[2017-04-24] MEDS: FAMOTIDINE 20 MG TABLET PO SCH (09:51)
[2017-04-24] MEDS: MONTELUKAST 10 MG TABLET PO SCH (09:51)
[2017-04-24] MEDS: FLUoxetine 10 MG CAPSULE PO SCH (09:51)
[2017-04-24] MEDS: CARBIDOPA/LEVODOPA 25-100 MG TABLET PO SCH ×3 (09:51→22:35)
[2017-04-24] MEDS: FENOFIBRATE 145 MG TABLET PO SCH (09:52)
[2017-04-24] MEDS: THEOPHYLLINE ER 300 MG TABLET PO SCH ×2 (09:52→22:34)
[2017-04-24] MEDS: PANTOPRAZOLE 40 MG VIAL IV SCH (09:54)
[2017-04-24] MEDS: ENOXAPARIN 30 MG/0.3 ML SYRINGE SUBCUT SCH (09:54)
[2017-04-24] MEDS: cefTRIAXone 1,000 MG in SYRINGE 1 EACH IV SCH (10:00)
[2017-04-24] MEDS: LINEZOLID INJ 600 MG in PREMIX 1 EACH IV SCH ×2 (10:12→22:44)
[2017-04-24] MEDS ORDERED: FUROSEMIDE 20 MG/2 ML VIAL IV ONE (12:00)
[2017-04-24] MEDS: SODIUM BICARBONATE 650 MG TABLET PO SCH (22:35)
[2017-04-25] MEDS: ALBUTEROL/IPRATROPIUM 3 ML NEB RESP TX SCH ×4 (02:48→20:30)
[2017-04-25] MEDS: methylPREDNISolone SOD SUC 40 MG/1 ML VIAL IV SCH ×3 (05:37→21:43)
[2017-04-25] MEDS: LEVOTHYROXINE 100 MCG TABLET PO SCH (05:38)
[2017-04-25] MEDS: ALBUTEROL 2 MG TABLET PO SCH ×4 (06:41→21:50)
[2017-04-25 07:14] LABS: Basophils % 0.4 % (0.0-0.8); Hematocrit 28.7 VOL% (42.0-52.0); Immature Granulocytes % 10.9 %; Immature Granulocytes Absolute 0.54 #; Lymphocytes # 0.5 10*3/uL (1.4-4.0); Lymphocytes % 10.7 % (21.2-54.2); Mean Corpuscular HGB Conc 32.1 GM/DL (32-36); Mean Corpuscular Hemoglobin 30 PG (27-34); Mean Corpuscular Volume 93.8 FL (87-102); Monocytes # 0.3 10*3/uL (0.11-0.8); Monocytes % 6.7 % (1.7-12.7); Neutrophils # 3.5 10*3/uL (1.4-7.4); Neutrophils % 71.3 % (38.7-73.9); Platelet Count 134 T/CUMM (130-400)
[2017-04-25 07:36] LABS: Hemoglobin 9.2 GM/DL (14.0-18.0); Red Blood Count 3.06 MC/CUMM (3.8-5.5)
[2017-04-25 07:52] LABS: Alanine Aminotransferase < 6 U/L (16-61); Albumin 2.4 G/DL (3.4-5.0); Alkaline Phosphatase 44 U/L (45-117); Aspartate Amino Transferase 14 U/L (0-37); Blood Urea Nitrogen 87 MG/DL (7-18); Calcium 8.8 MG/DL (8.5-10.1); Glucose 92 MG/DL (74-106); Magnesium 2.1 MG/DL (1.8-2.4); Osmolality,Calculated 318.4 MOS/KG (273-304); Sodium 147 MMOL/L (136-145); Total Protein 5.4 G/DL (6.4-8.3)
[2017-04-25 08:02] LABS: Band Neutrophils 3 % (0-10); Hypochromasia 1+; Lymphocytes 10 % (20-55); Metamyelocytes 1 %; Myelocytes 2 %; Promyelocytes 1 %; Segmented Neutrophils 78 % (50-85); Total Cells Counted 100
[2017-04-25 08:03] LABS: Microcytosis 1+; Ovalocytes Slight; Platelet Estimate Adequate; Tear Drop Cells Slight
[2017-04-25] MEDS: ASPIRIN CHEW 81 MG TABLET PO SCH (09:21)
[2017-04-25] MEDS: CARVEDILOL 3.125 MG TABLET PO SCH ×2 (09:22→21:50)
[2017-04-25] MEDS: MULTIVITAMIN (CENTRUM) TABLET PO SCH (09:22)
[2017-04-25] MEDS: MUPIROCIN 2% OINT 22 GM TUBE TOP SCH ×2 (09:22→21:51)
[2017-04-25] MEDS: DIVALPROEX 500 MG TABLET PO SCH ×3 (09:23→21:50)
[2017-04-25] MEDS: ROSUVASTATIN 20 MG TABLET PO SCH (09:23)
[2017-04-25] MEDS: GABAPENTIN 100 MG CAPSULE PO SCH ×2 (09:24→21:50)
[2017-04-25] MEDS: amLODIPine 10 MG TABLET PO SCH (09:24)
[2017-04-25] MEDS: FERROUS SULFATE 325 MG TABLET PO SCH ×2 (09:24→21:50)
[2017-04-25] MEDS: ZINC OXIDE PASTE 113 GM TUBE TOP SCH ×2 (09:24→21:51)
[2017-04-25] MEDS: PANTOPRAZOLE 40 MG VIAL IV SCH (09:25)
[2017-04-25] MEDS: FAMOTIDINE 20 MG TABLET PO SCH (09:25)
[2017-04-25] MEDS: FLUoxetine 10 MG CAPSULE PO SCH (09:25)
[2017-04-25] MEDS: cefTRIAXone 1,000 MG in SYRINGE 1 EACH IV SCH (09:29)
[2017-04-25] MEDS: CARBIDOPA/LEVODOPA 25-100 MG TABLET PO SCH ×3 (09:29→21:51)
[2017-04-25] MEDS: SODIUM BICARBONATE 650 MG TABLET PO SCH ×2 (09:30→21:49)
[2017-04-25] MEDS: THEOPHYLLINE ER 300 MG TABLET PO SCH ×2 (09:30→21:50)
[2017-04-25] MEDS: FENOFIBRATE 145 MG TABLET PO SCH (09:30)
[2017-04-25] MEDS: MONTELUKAST 10 MG TABLET PO SCH (09:30)
[2017-04-25] MEDS: BUDESONIDE/FORMOTEROL 160-4.5 INHALER 6 GM INH SCH ×2 (09:31→21:51)
[2017-04-25] MEDS: LINEZOLID INJ 600 MG in PREMIX 1 EACH IV SCH ×2 (09:42→21:46)
[2017-04-25] MEDS: ENOXAPARIN 30 MG/0.3 ML SYRINGE SUBCUT SCH (15:01)
[2017-04-26] MEDS: ALBUTEROL/IPRATROPIUM 3 ML NEB RESP TX SCH ×4 (00:49→20:29)
[2017-04-26] MEDS: ALBUTEROL 2 MG TABLET PO SCH ×3 (05:38→21:46)
[2017-04-26] MEDS: methylPREDNISolone SOD SUC 40 MG/1 ML VIAL IV SCH ×3 (05:38→21:47)
[2017-04-26] MEDS: LEVOTHYROXINE 100 MCG TABLET PO SCH (05:38)
[2017-04-26] MEDS: PANTOPRAZOLE 40 MG VIAL IV SCH (10:00)
[2017-04-26] MEDS: ENOXAPARIN 30 MG/0.3 ML SYRINGE SUBCUT SCH (10:00)
[2017-04-26] MEDS: THEOPHYLLINE ER 300 MG TABLET PO SCH ×2 (10:01→21:46)
[2017-04-26] MEDS: ROSUVASTATIN 20 MG TABLET PO SCH (10:01)
[2017-04-26] MEDS: amLODIPine 10 MG TABLET PO SCH (10:01)
[2017-04-26] MEDS: CARVEDILOL 3.125 MG TABLET PO SCH ×2 (10:01→21:46)
[2017-04-26] MEDS: CARBIDOPA/LEVODOPA 25-100 MG TABLET PO SCH ×3 (10:01→21:46)
[2017-04-26] MEDS: MONTELUKAST 10 MG TABLET PO SCH (10:01)
[2017-04-26] MEDS: FENOFIBRATE 145 MG TABLET PO SCH (10:02)
[2017-04-26] MEDS: ZINC OXIDE PASTE 113 GM TUBE TOP SCH ×2 (10:02→21:47)
[2017-04-26] MEDS: FERROUS SULFATE 325 MG TABLET PO SCH ×2 (10:02→21:46)
[2017-04-26] MEDS: SODIUM BICARBONATE 650 MG TABLET PO SCH ×2 (10:02→21:45)
[2017-04-26] MEDS: FLUoxetine 10 MG CAPSULE PO SCH (10:03)
[2017-04-26] MEDS: FAMOTIDINE 20 MG TABLET PO SCH (10:03)
[2017-04-26] MEDS: BUDESONIDE/FORMOTEROL 160-4.5 INHALER 6 GM INH SCH ×2 (10:03→21:53)
[2017-04-26] MEDS: DIVALPROEX 500 MG TABLET PO SCH ×3 (10:03→21:46)
[2017-04-26] MEDS: MULTIVITAMIN (CENTRUM) TABLET PO SCH (10:03)
[2017-04-26] MEDS: ASPIRIN CHEW 81 MG TABLET PO SCH (10:04)
[2017-04-26] MEDS: cefTRIAXone 1,000 MG in SYRINGE 1 EACH IV SCH (10:04)
[2017-04-26] MEDS: MUPIROCIN 2% OINT 22 GM TUBE TOP SCH ×2 (10:05→21:46)
[2017-04-26] MEDS: LINEZOLID INJ 600 MG in PREMIX 1 EACH IV SCH ×2 (10:37→21:52)
[2017-04-26] MEDS: GABAPENTIN 100 MG CAPSULE PO SCH ×2 (10:53→21:46)
[2017-04-27] MEDS: ALBUTEROL/IPRATROPIUM 3 ML NEB RESP TX SCH ×4 (00:52→20:11)
[2017-04-27 02:32] LABS: Basophils % 0.1 % (0.0-0.8); Hematocrit 30.1 VOL% (42.0-52.0); Hemoglobin 9.6 GM/DL (14.0-18.0); Immature Granulocytes % 3.4 %; Immature Granulocytes Absolute 0.24 #; Lymphocytes # 0.5 10*3/uL (1.4-4.0); Lymphocytes % 6.7 % (21.2-54.2); Mean Corpuscular HGB Conc 31.9 GM/DL (32-36); Mean Corpuscular Hemoglobin 30 PG (27-34); Mean Corpuscular Volume 92.6 FL (87-102); Mean Platelet Volume 12.3 FL (9.6-12.0); Monocytes # 0.3 10*3/uL (0.11-0.8); Monocytes % 4.1 % (1.7-12.7); Neutrophils # 6.1 10*3/uL (1.4-7.4); Neutrophils % 85.7 % (38.7-73.9); Platelet Count 114 T/CUMM (130-400); Red Blood Count 3.25 MC/CUMM (3.8-5.5); Red Cell Distribution Width 15.7 % (9.3-17.3); White Blood Count 7.1 T/CUMM (4-12)
[2017-04-27 03:07] LABS: Alanine Aminotransferase < 6 U/L (16-61); Albumin 2.2 G/DL (3.4-5.0); Alkaline Phosphatase 41 U/L (45-117); Aspartate Amino Transferase 19 U/L (0-37); Blood Urea Nitrogen 99 MG/DL (7-18); Calcium 8.4 MG/DL (8.5-10.1); Glucose 134 MG/DL (74-106); Magnesium 2.2 MG/DL (1.8-2.4); Osmolality,Calculated 322.6 MOS/KG (273-304); Potassium 4.7 MMOL/L (3.5-5.1); Sodium 146 MMOL/L (136-145); Total Protein 5.4 G/DL (6.4-8.3)
[2017-04-27] MEDS: ALBUTEROL 2 MG TABLET PO SCH ×2 (05:43→14:59)
[2017-04-27] MEDS: methylPREDNISolone SOD SUC 40 MG/1 ML VIAL IV SCH ×2 (05:43→14:58)
[2017-04-27] MEDS: LEVOTHYROXINE 100 MCG TABLET PO SCH (05:44)
[2017-04-27] MEDS: cefTRIAXone 1,000 MG in SYRINGE 1 EACH IV SCH (09:56)
[2017-04-27] MEDS: ASPIRIN CHEW 81 MG TABLET PO SCH (09:56)
[2017-04-27] MEDS: CARVEDILOL 3.125 MG TABLET PO SCH (09:57)
[2017-04-27] MEDS: THEOPHYLLINE ER 300 MG TABLET PO SCH (09:57)
[2017-04-27] MEDS: FLUoxetine 10 MG CAPSULE PO SCH (09:57)
[2017-04-27] MEDS: MULTIVITAMIN (CENTRUM) TABLET PO SCH (09:57)
[2017-04-27] MEDS: DIVALPROEX 500 MG TABLET PO SCH ×2 (09:57→14:58)
[2017-04-27] MEDS: BUDESONIDE/FORMOTEROL 160-4.5 INHALER 6 GM INH SCH ×2 (09:57→22:44)
[2017-04-27] MEDS: CARBIDOPA/LEVODOPA 25-100 MG TABLET PO SCH ×2 (09:57→14:59)
[2017-04-27] MEDS: GABAPENTIN 100 MG CAPSULE PO SCH (09:57)
[2017-04-27] MEDS: FERROUS SULFATE 325 MG TABLET PO SCH (09:57)
[2017-04-27] MEDS: FENOFIBRATE 145 MG TABLET PO SCH (09:57)
[2017-04-27] MEDS: FAMOTIDINE 20 MG TABLET PO SCH (09:57)
[2017-04-27] MEDS: MONTELUKAST 10 MG TABLET PO SCH (09:57)
[2017-04-27] MEDS: amLODIPine 10 MG TABLET PO SCH (09:57)
[2017-04-27] MEDS: ENOXAPARIN 30 MG/0.3 ML SYRINGE SUBCUT SCH (09:58)
[2017-04-27] MEDS: ZINC OXIDE PASTE 113 GM TUBE TOP SCH (11:00)
[2017-04-27] MEDS: SODIUM BICARBONATE 650 MG TABLET PO SCH (12:11)
[2017-04-27] MEDS: ROSUVASTATIN 20 MG TABLET PO SCH (12:11)
[2017-04-27] MEDS: LINEZOLID INJ 600 MG in PREMIX 1 EACH IV SCH (12:11)
[2017-04-27] MEDS: PANTOPRAZOLE 40 MG VIAL IV SCH (12:12)
[2017-04-27] MEDS ORDERED: FUROSEMIDE 40 MG/4 ML VIAL IV ONE (12:58)
[2017-04-27] MEDS: MUPIROCIN 2% OINT 22 GM TUBE TOP SCH (15:13)
[2017-04-27 20:48] LABS: ABG Base Excess -3.2 MMOL/L (-2.5-2.5); ABG HCO3 21.6 MMOL/L (20-26); ABG Oxygen Saturation 91.6 % (95-100); ABG PCO2 44.6 MM HG (35-48); ABG PO2 61.2 MM HG (80-95); ABG TCO2 20.9 MMOL/L (23-27); Allen Test Positive
[2017-04-27 21:30] LABS: Calcium 8.7 MG/DL (8.5-10.1); Osmolality,Calculated 326.1 MOS/KG (273-304); Potassium 4.6 MMOL/L (3.5-5.1)
[2017-04-27 21:33] LABS: Alanine Aminotransferase < 6 U/L (16-61); Albumin 2.5 G/DL (3.4-5.0); Alkaline Phosphatase 48 U/L (45-117); Aspartate Amino Transferase 36 U/L (0-37); Blood Urea Nitrogen 103 MG/DL (7-18); Calcium 8.6 MG/DL (8.5-10.1); Glucose 79 MG/DL (74-106); Potassium 4.9 MMOL/L (3.5-5.1); Sodium 150 MMOL/L (136-145); Total Protein 5.8 G/DL (6.4-8.3)
[2017-04-27 23:48] LABS: Ammonia 33 UMOL/L (11-32)
[2017-04-28] MEDS: LINEZOLID INJ 600 MG in PREMIX 1 EACH IV SCH ×2 (00:03→09:50)
[2017-04-28] MEDS: MUPIROCIN 2% OINT 22 GM TUBE TOP SCH ×2 (00:04→09:53)
[2017-04-28] MEDS: CARBIDOPA/LEVODOPA 25-100 MG TABLET PO SCH ×3 (00:04→15:15)
[2017-04-28] MEDS: FERROUS SULFATE 325 MG TABLET PO SCH ×2 (00:04→09:55)
[2017-04-28] MEDS: SODIUM BICARBONATE 650 MG TABLET PO SCH ×2 (00:04→09:54)
[2017-04-28] MEDS: DIVALPROEX 500 MG TABLET PO SCH ×3 (00:04→15:15)
[2017-04-28] MEDS: ALBUTEROL 2 MG TABLET PO SCH ×3 (00:04→13:11)
[2017-04-28] MEDS: CARVEDILOL 3.125 MG TABLET PO SCH ×2 (00:04→09:56)
[2017-04-28] MEDS: GABAPENTIN 100 MG CAPSULE PO SCH ×2 (00:05→09:55)
[2017-04-28] MEDS: methylPREDNISolone SOD SUC 40 MG/1 ML VIAL IV SCH ×3 (00:05→12:46)
[2017-04-28] MEDS: THEOPHYLLINE ER 300 MG TABLET PO SCH ×2 (00:05→10:19)
[2017-04-28] MEDS: ZINC OXIDE PASTE 113 GM TUBE TOP SCH ×2 (00:05→09:56)
[2017-04-28 00:06] LABS: Amorphous Crystals,Urine Occasional /HPF (Few); Apearance,Urine Slightly Hazy (Clear); Bacteria,Urine Few /HPF (Few); Bilirubin,Urine Negative (Negative); Blood, Urine Negative (Negative); Glucose,Urine (UA) Negative (Negative); Hyaline Casts,Urine 2 /LPF (0-3); Ketones,Urine Negative (Negative); Mucus,Urine Occasional /LPF (Occasional); Nitrite,Urine Negative (Negative); Protein,Urine 100 MG/DL; Urine Color Yellow (Yellow); Urine Specific Gravity 1.009 (1.001-1.035); Urine Urobilinogen < 2.0 EU/DL (0.2-1.0); WBC,Urine 3 /HPF (0-6)
[2017-04-28] MEDS: ALBUTEROL/IPRATROPIUM 3 ML NEB RESP TX SCH ×4 (00:36→19:38)
[2017-04-28 05:24] LABS: Calcium 8.7 MG/DL (8.5-10.1); Osmolality,Calculated 329.9 MOS/KG (273-304); Potassium 4.4 MMOL/L (3.5-5.1)
[2017-04-28] MEDS: LEVOTHYROXINE 100 MCG TABLET PO SCH (06:10)
[2017-04-28 08:39] LABS: ABG Base Excess -3.8 MMOL/L (-2.5-2.5); ABG HCO3 21.2 MMOL/L (20-26); ABG Oxygen Saturation 95.5 % (95-100); ABG PCO2 38.3 MM HG (35-48); ABG PH 7.362 (7.35-7.45); ABG PO2 76.7 MM HG (80-95); ABG TCO2 22.4 MMOL/L (23-27)
[2017-04-28 09:49] LABS: Theophylline 14.8 UG/ML (10-20)
[2017-04-28] MEDS: DEXTROSE 5% 1,000 ML IV SCH (09:50)
[2017-04-28] MEDS: ENOXAPARIN 30 MG/0.3 ML SYRINGE SUBCUT SCH (09:54)
[2017-04-28] MEDS: PANTOPRAZOLE 40 MG VIAL IV SCH (09:54)
[2017-04-28] MEDS: cefTRIAXone 1,000 MG in SYRINGE 1 EACH IV SCH (09:54)
[2017-04-28] MEDS: MONTELUKAST 10 MG TABLET PO SCH (09:55)
[2017-04-28] MEDS: ROSUVASTATIN 20 MG TABLET PO SCH (09:55)
[2017-04-28] MEDS: MULTIVITAMIN (CENTRUM) TABLET PO SCH (09:55)
[2017-04-28] MEDS: FENOFIBRATE 145 MG TABLET PO SCH (09:55)
[2017-04-28] MEDS: amLODIPine 10 MG TABLET PO SCH (09:55)
[2017-04-28] MEDS: FLUoxetine 10 MG CAPSULE PO SCH (09:55)
[2017-04-28] MEDS: FAMOTIDINE 20 MG TABLET PO SCH (09:55)
[2017-04-28] MEDS: BUDESONIDE/FORMOTEROL 160-4.5 INHALER 6 GM INH SCH (09:56)
[2017-04-28] MEDS: ASPIRIN CHEW 81 MG TABLET PO SCH (09:56)
[2017-04-28 09:59] LABS: Alanine Aminotransferase < 9 U/L (16-61); Albumin 2.4 G/DL (3.4-5.0); Alkaline Phosphatase 52 U/L (45-117); Aspartate Amino Transferase 73 U/L (0-37); Blood Urea Nitrogen 100 MG/DL (7-18); Calcium 8.8 MG/DL (8.5-10.1); Free T4 (Free Thyroxine) 0.76 NG/DL (0.76-1.46); Glucose 75 MG/DL (74-106); Potassium 4.3 MMOL/L (3.5-5.1); Sodium 150 MMOL/L (136-145); Total Protein 5.6 G/DL (6.4-8.3)
[2017-04-28] MEDS ORDERED: LEVOTHYROXINE 25 MCG TABLET PO ONE (10:08)
[2017-04-28 10:13] LABS: Apearance,Urine Slightly Hazy (Clear); Bacteria,Urine Occasional /HPF (Few); Bilirubin,Urine Negative (Negative); Blood, Urine Large mg/dL (Negative); Glucose,Urine (UA) 50 mg/dL (Negative); Ketones,Urine Negative (Negative); Mucus,Urine Occasional /LPF (Occasional); Nitrite,Urine Negative (Negative); Protein,Urine 100 MG/DL; RBC,Urine 112 /HPF (0-4); Squamous Epithelial Cell,Urine Occasional /HPF (0-10); Urine Color Yellow (Yellow); Urine Specific Gravity 1.011 (1.001-1.035); Urine Urobilinogen < 2.0 EU/DL (0.2-1.0); WBC,Urine 3 /HPF (0-6)
[2017-04-28] MEDS: ALBUMIN 25% 25 GM in PREMIX 1 EACH IV SCH (13:03)
[2017-04-28 13:38] LABS: ABG Base Excess -3.1 MMOL/L (-2.5-2.5); ABG HCO3 22.5 MMOL/L (20-26); ABG Oxygen Saturation 86.4 % (95-100); ABG PCO2 42.9 MM HG (35-48); ABG PH 7.338 (7.35-7.45); ABG PO2 49.9 MM HG (80-95); ABG TCO2 23.8 MMOL/L (23-27)
[2017-04-28] MEDS ORDERED: MORPHINE 2 MG/1 ML SYRINGE IV PRN (23:29)
[2017-04-29] MEDS: ALBUMIN 25% 25 GM in PREMIX 1 EACH IV SCH ×2 (01:02→07:45)
[2017-04-29] MEDS: GABAPENTIN 100 MG CAPSULE PO SCH ×2 (01:03→13:07)
[2017-04-29] MEDS: ZINC OXIDE PASTE 113 GM TUBE TOP SCH ×2 (01:03→12:42)
[2017-04-29] MEDS: FERROUS SULFATE 325 MG TABLET PO SCH (01:03)
[2017-04-29] MEDS: CARVEDILOL 3.125 MG TABLET PO SCH ×2 (01:03→13:07)
[2017-04-29] MEDS: DIVALPROEX 500 MG TABLET PO SCH ×2 (01:03→13:07)
[2017-04-29] MEDS: MUPIROCIN 2% OINT 22 GM TUBE TOP SCH ×2 (01:03→13:10)
[2017-04-29] MEDS: methylPREDNISolone SOD SUC 40 MG/1 ML VIAL IV SCH ×3 (01:04→13:13)
[2017-04-29] MEDS: CARBIDOPA/LEVODOPA 25-100 MG TABLET PO SCH ×2 (01:04→13:07)
[2017-04-29] MEDS: SODIUM BICARBONATE 650 MG TABLET PO SCH ×2 (01:04→13:12)
[2017-04-29] MEDS: BUDESONIDE/FORMOTEROL 160-4.5 INHALER 6 GM INH SCH ×2 (01:04→12:40)
[2017-04-29] MEDS: THEOPHYLLINE ER 300 MG TABLET PO SCH ×2 (01:06→10:02)
[2017-04-29] MEDS: ALBUTEROL 2 MG TABLET PO SCH ×2 (01:06→07:45)
[2017-04-29] MEDS: ALBUTEROL/IPRATROPIUM 3 ML NEB RESP TX SCH ×2 (01:10→13:12)
[2017-04-29] MEDS ORDERED: LEVOTHYROXINE 125 MCG TABLET PO SCH (06:30)
[2017-04-29 07:18] LABS: Basophils % 0.1 % (0.0-0.8); Hematocrit 30.7 VOL% (42.0-52.0); Hemoglobin 9.3 GM/DL (14.0-18.0); Immature Granulocytes % 1.7 %; Immature Granulocytes Absolute 0.26 #; Lymphocytes # 0.6 10*3/uL (1.4-4.0); Lymphocytes % 3.7 % (21.2-54.2); Mean Corpuscular HGB Conc 30.3 GM/DL (32-36); Mean Corpuscular Hemoglobin 30 PG (27-34); Mean Corpuscular Volume 97.8 FL (87-102); Mean Platelet Volume 12.7 FL (9.6-12.0); Monocytes # 0.4 10*3/uL (0.11-0.8); Monocytes % 2.6 % (1.7-12.7); Neutrophils # 14.2 10*3/uL (1.4-7.4); Neutrophils % 91.9 % (38.7-73.9); Red Blood Count 3.14 MC/CUMM (3.8-5.5)
[2017-04-29 07:26] LABS: Platelet Count 78 T/CUMM (130-400); White Blood Count 15.4 T/CUMM (4-12)
[2017-04-29] MEDS: DEXTROSE 5% 1,000 ML IV SCH (07:44)
[2017-04-29 07:45] LABS: Alanine Aminotransferase < 9 U/L (16-61); Albumin 2.3 G/DL (3.4-5.0); Alkaline Phosphatase 56 U/L (45-117); Aspartate Amino Transferase 179 U/L (0-37); Blood Urea Nitrogen 123 MG/DL (7-18); Calcium 8.6 MG/DL (8.5-10.1); Glucose 74 MG/DL (74-106); Osmolality,Calculated 336.9 MOS/KG (273-304); Potassium 5.2 MMOL/L (3.5-5.1); Sodium 151 MMOL/L (136-145); Total Protein 5.7 G/DL (6.4-8.3)
[2017-04-29 07:59] LABS: Band Neutrophils 5 % (0-10); Hypochromasia 1+; Lymphocytes 5 % (20-55); Metamyelocytes 1 %; Microcytosis 1+; Segmented Neutrophils 86 % (50-85); Total Cells Counted 100
[2017-04-29 08:00] LABS: Platelet Estimate Decreased
[2017-04-29] MEDS: amLODIPine 10 MG TABLET PO SCH (12:38)
[2017-04-29] MEDS: ENOXAPARIN 30 MG/0.3 ML SYRINGE SUBCUT SCH (12:43)
[2017-04-29] MEDS: FLUoxetine 10 MG CAPSULE PO SCH (13:07)
[2017-04-29] MEDS: FENOFIBRATE 145 MG TABLET PO SCH (13:08)
[2017-04-29] MEDS: ASPIRIN CHEW 81 MG TABLET PO SCH (13:10)
[2017-04-29] MEDS: PANTOPRAZOLE 40 MG VIAL IV SCH (13:11)
[2017-04-29] MEDS: MONTELUKAST 10 MG TABLET PO SCH (13:11)
[2017-04-29] MEDS: FAMOTIDINE 20 MG TABLET PO SCH (13:11)
[2017-04-29] MEDS: ROSUVASTATIN 20 MG TABLET PO SCH (13:11)
[2017-04-29 17:56] VITALS: BP 0/0
== END 2017-04-29 16:13 | disposition expired | DRG 208 ==
LOC: EDUNIT# → EDBD → N.ED 08:22 → N.EDINP 09:40 → SUATTDRO 09:40 → N.ICU 12:24 → N.2E 04-18 21:01 → N.ICU 04-27 20:25
PROVIDERS: ADMIT Internal Medicine; ATTEND Family Medicine